=== PATIENT | female | born 1990 | race Caucasian/White ===

== ENCOUNTER 2022-02-04 19:25 | Emergency (ER) | payer BC, SELFPAY ==
[2022-02-04 19:27] VITALS: BP 111/71; PULSE 88; RESP 18; TEMP 36.9; O2SAT 100
[2022-02-04 19:46] VITALS: BP 98/64; PULSE 85
[2022-02-04 19:47] VITALS: BP 107/72; PULSE 88
[2022-02-04 19:48] VITALS: BP 104/69; PULSE 83
[2022-02-04 19:53] LABS: Add Urine Microscopic? YES; Appearance Urine Clear (Clear); Bilirubin Urine Negative (Negative); Blood Urine 2+ (Negative); Color Urine Yellow (Yellow); Glucose Urine UA Negative (Negative); Ketones Urine Negative (Negative); Leukocyte Esterase Ur Trace LEU/UL (Negative); Nitrate Urine Negative (Negative); Protein Urine Trace mg/dL (Negative); Urobilinogen Urine 0.2 mg/dL (<2.0); pH Urine 7.5 (5.0-9.0)
--- NOTE | 2022-02-04 19:53 | ECG_ITS ---
Measurements Intervals [place] Rate: 82 P: 43 ID: [id number] QRS: 61 QRSD: 75 T: 49 QT: 352 QTc: 412 Interpretive Statements SINUS RHYTHM NORMAL ECG NO PREVIOUS ECG AVAILABLE FOR COMPARISON Electronically Signed On 02-05-2022 11:20:11 CDT by Sterling Christensen M.D.
--- NOTE | 2022-02-04 19:54 | PC.NURSE ---
Pt asked, to decrease cost, if she could not have an Iv and only get blood work drawn. MD Mitchell approved this.
--- NOTE | 2022-02-04 19:57 | ED.GENADULT ---
HPI - General Adult General Chief complaint: Vaginal Bleeding Stated complaint: syncope after surgery Time Seen by Provider: 02/04/22 19:34 History of Present Illness HPI narrative: Patient is a 31-year-old female who presents ER with syncope. She had a strong cramp of her uterus and then she lost consciousness. Patient is 2 days postop from hysteroscopy D&C where they placed a Lynn balloon to prevent further adhesions. No fevers or chills or sweats. She did start having some bleeding from the bladder and that may be related to her menstrual period. Patient has been having cramping throughout the day. She reports eating and drinking normally. No urinary frequency urgency or dysuria. No runny nose or sore throat or productive cough. 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 Related Data Home Medications Medication Instructions Recorded Confirmed ATABEX 02/04/22 aspirin 81 mg tablet mg PO 02/04/22 coenzyme Q10 30 mg capsule (CoQ-10) mg PO 02/04/22 doxycycline hyclate 100 mg capsule cap 02/04/22 estradiol 0.1 mg/24 hr semiweekly patch 02/04/22 transdermal patch Allergies Allergy/AdvReac Type Severity Reaction Status Date / Time rimantadine Allergy Unknown Anaphylaxis Verified 02/04/22 19:31 Review of Systems Review of Systems: All systems reviewed & are unremarkable except as noted in HPI and below Constitutional: Constitutional: Denies chills, Denies fatigue and Denies fever(s) Cardiovascular: Cardiovascular: Denies chest pain and Denies rapid heart rate Respiratory: Respiratory: Denies cough and Denies dyspnea Gastrointestinal: Gastrointestinal: Reports abdominal pain, Denies nausea and Denies vomiting Genitourinary: Genitourinary: Denies nocturia and Denies dysuria Neurologic: Reports syncope [facility] Family History Family History (Updated 11/08/16 @ 08:26 by DOCTOR UNKNOWN) Mother Family history of hypercholesterolemia Hypertension Father Family history of mental disorder Grandparent Cerebrovascular accident Other Family history of cardiovascular disease Family history of dementia Social History Social History Smoking status: Never smoker Alcohol intake: never Exam Narrative: GENERAL: Well-appearing, well-nourished, and in no acute distress. HEAD: Normocephalic, atraumatic. EYES: PERRL and EOMI. CHEST: Clear to auscultation. No respiratory distress. HEART: Regular rate and rhythm. Normal peripheral pulses. ABDOMEN: Soft, mild lower abdominal tenderness to palpation that patient reports is consistent with her postop discomfort nondistended. EXTREMITIES: Normal range of motion. No edema. SKIN: Warm, dry, no rash. NEURO: Alert and oriented x3. Course Course Emergency Course: White count elevated and felt to be reactive from the surgery. Electrolytes normal with normal renal function. UA with contaminant. Patient declined IV fluid. Orthostatics unremarkable. Also discussed case with patient's OB, Dr. Duc Garcia. He recommended removing 2 mL of fluid from the Lynn balloon for comfort. Also since patient is on her cycle she may also release blood intermittently. Patient's verbalized understanding of this. Discharge home. Vital Signs Vital signs: Vital Signs Temperature 98.4 F 02/04/22 19:27 Pulse Rate 88 02/04/22 19:27 Respiratory Rate 18 02/04/22 19:27 Blood Pressure 111/71 02/04/22 19:27 Pulse Oximetry 100 02/04/22 19:27 Oxygen Delivery Room Air 02/04/22 19:27 Temperature 98.4 F 02/04/22 19:27 Pulse Rate 83 02/04/22 19:48 Respiratory Rate 18 02/04/22 19:27 Blood Pressure 104/69 02/04/22 19:48 Pulse Oximetry 100 02/04/22 19:27 Oxygen Delivery Room Air 02/04/22 19:27 Medical Decision Making Vital Signs Vital Signs: Vital Signs Temperature 98.4 F 02/04/22 19:27 Pulse Rate 88 02/04/22 19:27 Respiratory Rate 18 02/04/22 19:27 Blood Pressure 111/71 0
[2022-02-04 20:00] LABS: Basophils Percent Auto 0.3 % (0.2-1.2); Eosinophils Absolute Auto 0.3 K/mm3 (0-0.3); Eosinophils Percent Auto 1.9 % (0-4.4); Hematocrit 37.2 % (37.0-47.0); Hemoglobin 12.5 g/dL (12.0-15.0); Immature Granulocyte Absolute 0.05 K/mm3 (0.00-0.031); Immature Granulocyte Percent A 0.4 % (0-0.5); Lymphocytes Absolute Auto 1.71 K/mm3 (0.9-3.2); Mean Corpuscular HGB Conc 33.6 g/dl (32-36); Mean Corpuscular Volume 95.1 fl (80-100); Mean Platelet Volume 10.9 fl (7.4-10.4); Monocytes Percent Auto 7.3 % (2.6-8.5); Neutrophils Absolute Auto 11.1 K/mm3 (1.3-6.7); Neutrophils Percent Auto 78.1 % (45.5-73.1); Platelet Count Result 217 k/mm3 (150-375); Red Blood Count 3.91 M/mm3 (4.2-5.4); Red Cell Distribution Width 12.9 % (11.5-14.5); White Blood Count 14.3 K/mm3 (4.5-10.0)
[2022-02-04 20:01] LABS: Mucus Urine Rare /lpf; RBC Urine 21-50 /hpf (0-2); Squamous Epithelial Cell Urine Many /hpf (Few)
[2022-02-04 20:11] LABS: Anion Gap 5 mmol/L (8-16); Blood Urea Nitrogen 15 mg/dL (7-17); Calcium 8.2 mg/dL (8.4-10.2); Carbon Dioxide 26 mmol/L (22-30); Chloride 107 mmol/L (98-107); Estimated CRCL calculation 82 ml/min; Estimated Glomerular Filt Rate > 60; Glucose 92 mg/dL (65-110); Sodium 138 mmol/L (137-145)
[2022-02-04 20:48] VITALS: BP 97/67; PULSE 80; RESP 18; O2SAT 100
== END 2022-02-04 20:51 | disposition home or self-care (01) ==
PROVIDERS: Emergency Provider Emergency Medicine; PCP Internal Medicine
DX: R55 Syncope and collapse (principal); Z98.890 Other specified postprocedural states; Z79.82 Long term (current) use of aspirin
CPT/HCPCS: 36415; 80048; 81001; 85025; 93005; 99283